=== PATIENT | female | born 1970 | race American Indian/Alaskan Native ===

== ENCOUNTER 2016-08-31 13:45 | Emergency (ER) | payer MEDICARE ==
[2016-08-31 15:47] VITALS: BP 144/98
--- NOTE | 2016-08-31 18:04 | Emergency Department Report ---
ED Rash HPI - HPI Chief Complaint: Headache Stated Complaint: LUPUS FLARE UP Time Seen by Provider: 08/31/16 17:12 Duration: 3-4 days Location: Other (right flank/back) Rash Symptoms: Yes Itching, Yes Blistering, Yes Malaise, Yes Myalgias, No Facial Swelling, No Tongue/Oral Swelling, No Breathing Difficulties, No Choking Sensation, No Wheezing/Dyspnea, No Peeling, No Fever, No Lightheaded Severity: moderate Other History: Patient presents with skin rash on right side/back that she describes is painful and burning. She does have a history of Lupus, but states this is a different type of pain. She currently takes Percocet 10 that is prescribed by her pain management doctor. She also has renal insufficiency and has peritoneal dialysis daily. She is unsure of her GFR. ED Review of Systems ROS: Stated complaint: LUPUS FLARE UP Other details as noted in HPI Constitutional: denies: chills, fever Respiratory: denies: cough, shortness of breath, wheezing Cardiovascular: denies: chest pain, palpitations Gastrointestinal: denies: abdominal pain, nausea, diarrhea Genitourinary: denies: urgency, dysuria, discharge Musculoskeletal: as per HPI, back pain. denies: joint swelling, arthralgia Skin: as per HPI, rash. denies: lesions Neurological: denies: headache, weakness, paresthesias ED Past Medical Hx - Past Medical History Hx Hypertension: Yes Hx CVA: No Hx Heart Attack/AMI: No Hx Congestive Heart Failure: No Hx Diabetes: Yes Hx Deep Vein Thrombosis: No Hx Pulmonary Embolism: No Hx GERD: No Hx Liver Disease: No Hx Renal Disease: Yes (RENAL INSUFFICIENCY) Hx Sickle Cell Disease: No Hx Arthritis: Yes Hx Headaches / Migraines: Yes Hx Seizures: Yes Hx Kidney Stones: Yes Hx Psychiatric Treatment: No Hx Asthma: No Hx COPD: No Hx Tuberculosis: No Hx Dementia: No Hx HIV: No Additional medical history: LUPUS - Surgical History Past Surgical History?: Yes Additional Surgical History: tubal ligation 2013, breast reduction - Social History Smoking Status: Never Smoker Substance Use Type: None - Medications Home Medications: Home Medications Medication Instructions Recorded Confirmed Last Taken Type Furosemide [Lasix] 20 mg PO DAILY 03/08/14 03/08/14 Unknown History Hydralazine HCl [hydrALAZINE] 100 mg PO BID 03/08/14 03/08/14 Unknown History Mycophenolate [Cellcept] 1,000 mg PO BID 03/08/14 03/08/14 Unknown History Primidone [Mysoline] 50 mg PO DAILY 03/08/14 03/08/14 Unknown History amLODIPine [Norvasc] 10 mg PO DAILY 03/08/14 03/08/14 Unknown History diphenhydrAMINE [Benadryl] 50 mg PO ONCE PRN 03/08/14 03/08/14 03/08/14 03:00 History 50MG predniSONE [Deltasone] 10 mg PO DAILY 03/08/14 03/08/14 Unknown History Acyclovir [Zovirax Tab] 800 mg PO Q12H #14 tab 08/31/16 Unknown Rx Rash Exam - Exam General: Vital signs noted. No distress. Alert and acting appropriately. HEENT: No Periorbital Edema, No Conjuctival Injection, No Chemosis, No Perioral Edema, No Tongue Edema, No Uvular Edema, No Compromised Airway, No Drooling Lungs: Yes Good Air Exchange (Normal Breath Sounds), No Wheezes, No Ronchi, No Stridor, No Cough, No Labored Respirations, No Retractions, No Use of Accessory Muscles, No Other Abnormal Lung Sounds Heart: Yes Regular, No Murmur Skin: Yes Urticarial Rash, Yes Maculopapular Rash, Yes Bulla(e), Yes Tenderness , Yes Erythema, Yes Encrustations, Yes Other (all of the above is at the right side/flank/back region.), No Morbilliform rash, No Excoriations, No Weeping, No Edema ED Course Vital Signs 08/31/16 15:43 Temperature 98.5 F Pulse Rate 74 Respiratory 16 Rate Blood Pressure 144/98 O2 Sat by Pulse 100 Oximetry ED Medical Decision Making - Medical Decision Making Patient presents with skin rash that appears to be shingles, I spoke with Dr. Blanco about patient, informed her of pt's hx of lupus, renal insufficiency, peritoneal dialysis, he states acyclovir is a good choice. I spoke with Klaus in the pharmacy, he states to dose pt at 800mg q 12 hours based on her hx of RI and PD. She is already on percocet 10mg with her pain mgt - Differential Diagnosis shingles, contact dermatitis Critical Care Time: No Critical care attestation.: If time is entered above; I have spent that time in minutes in the direct care of this critically ill patient, excluding procedure time. ED Disposition Clinical Impression: Shingles Disposition: DISCHARGED TO HOME OR SELFCARE Is pt being admited?: No Does the pt Need Aspirin: No Condition: Stable Instructions: Herpes Zoster (ED) Additional Instructions: Follow up with your PCP in 1-2 days, continue f/u with renal doctor monthly. 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 Prescriptions: Acyclovir [Zovirax Tab] 800 mg PO Q12H #14 tab Referrals: ELENA SORENSON MD [Primary Care Provider] - 3-5 Days Time of Disposition: 18:10
== END 2016-08-31 18:20 | disposition home or self-care (01) ==
LOC: ED 13:45
DX: B02.9 Zoster without complications (principal); I10 Essential (primary) hypertension; E11.9 Type 2 diabetes mellitus without complications; N28.9 Disorder of kidney and ureter, unspecified; G43.909 Migraine, unspecified, not intractable, without status migrainosus; M19.90 Unspecified osteoarthritis, unspecified site
CPT/HCPCS: 99283